=== PATIENT | female | born 1955 | race Hispanic/Latino ===

== ENCOUNTER → 2024-02-18 | Outpatient (REF) | payer MEDICARE ==
[~2024-02-18] MED LIST: IOPAMIDOL 370 MG/ML 100 ML INFUS..BTL INJ ONE
[2024-02-18 10:09] LABS: CREATININE, SERUM 0.79 mg/dL (0.57-1.11)
== END ==
LOC: CT 09:08
PROVIDERS: ATTEND Internal Medicine Gastroenterology
DX: R19.7 Diarrhea, unspecified (principal); R70.0 Elevated erythrocyte sedimentation rate
CPT/HCPCS: 36415; 74177; 82565; 84520; Q9967; 76937